=== PATIENT | male | born 1960 | race Caucasian/White ===

== ENCOUNTER 2016-10-03 03:43 | Emergency (ER) | payer OTHER ==
--- NOTE | 2016-10-03 03:49 | PDOC ---
History of Present Illness - General Chief Complaint: Pain, Acute Stated Complaint: THROBBING,SWELLING TO LEFT LEG S/P HIP REPLACEMENT Time Seen by Provider: 10/03/16 03:47 - History of Present Illness Initial Comments: this 55-year-old man presents by ambulance with a several hour history of left leg edema.The patient had left hip replacement at 4 days ago. Since then, heas been doing well, ambulating as planned with no new trauma. Tonight,after the patient went to bed, he noted mild discomfort in the lower left portion of his leg. He then examined the leg and found it to be edematous from the ankle to the side. No new discharge or erythema from proximal left anterior thigh incision. No fever/chills. No history of new trauma. Patient has been taking his medication as prescribed (including baby aspirin twice a day) except for skipping last night's dose of baby aspirin. no previous history of thromboembolicdisease. He denies cough/shortness of breath. Past History - Past Medical History Allergies/Adverse Reactions: Allergies Allergy/AdvReac Type Severity Reaction Status Date / Time No Known Allergies Allergy Verified 10/03/16 03:44 Home Medications: Ambulatory Orders NK [No Known Home Medication] 10/03/16 Review of Systems - Review of Systems Able to Perform ROS?: Yes Comments:: 12 point review of systems is negative except for what is noted in the history of present illness *Physical Exam - Physical Exam Comments: Adult male, alert and oriented 3, in no acute distress Vital signs as noted HEAD: No contusions, abrasions or lacerations of the scalp; no facial ecchymosis , deformities or tenderness EYES: Pupils equal, round and reactive to light, extraocular movements intact, sclera anicteric, conjunctiva clear PHARYNX: No erythema, exudate or edema; mucous membranes moist NECK: Supple, nontender, no masses or bruits LUNGS: Clear to auscultation bilaterally CARDIAC: S1, S2 normal; no extra sounds, rubs or murmurs heard ABDOMEN:Normoactive bowel sounds, nontender, no masses, no organomegaly EXTREMITIES: left lower extremity8 cm linear, vertical incision at proximal thigh intact without tenderness/edema/discharge Mild edema/faint erythema anterior and posterior ankle/calf/distal thigh NEUROLOGICAL: Cranial nerves II through XII grossly intact. Normal speech, normal gait.moving all 4 extremities equally, Sensation intact in all extremities. PSYCH: Normal mood, normal affect. SKIN: Warm, Dry, normal turgor, no rashes or lesions noted. Medical Decision Making - Medical Decision Making Doppler Duplex US of left lower extremity shows no evidence of DVT *DC/Admit/Observation/Transfer Diagnosis at time of Disposition: Leg edema, left History of total hip replacement Qualifiers: Laterality: left Qualified Code(s): Z96.642 - Presence of left artificial hip joint - Discharge Dispostion Disposition: HOME Condition at time of disposition: Stable - Patient Instructions Printed Discharge Instructions: DI for Dependent Edema Additional Instructions: continue medications as prescribed Continue exercise regimen elevate left leg; avoid prolonged dependent position Call Dr. Russ office today as discussed Keep Follow-up appointment as arranged return or see your doctor if redness/pain worsens
[2016-10-03 03:51] VITALS: BP 134/96; PULSE 87; TEMP 98.2; BMI 26.2
== END 2016-10-03 05:39 | disposition home or self-care (01) ==
LOC: FER 03:43
DX: R22.42 Localized swelling, mass and lump, left lower limb (principal); Z98.890 Other specified postprocedural states; Z96.642 Presence of left artificial hip joint
CPT/HCPCS: 93971-TC; 99281-25